=== PATIENT | male | born 1990 | race Caucasian/White ===

== ENCOUNTER 2017-03-07 14:33 | Emergency (ER) | payer MEDICAID ==
[~2017-03-07] VITALS: Ht 180.3 cm; Wt 81.6 kg
== END 2017-03-07 17:54 | disposition home or self-care (01) ==
LOC: ED 14:33 → EDSEX 14:35 → ED 17:54
DX: T63.441A Toxic effect of venom of bees, accidental (unintentional), initial encounter (principal); F17.200 Nicotine dependence, unspecified, uncomplicated; Z88.0 Allergy status to penicillin; Z88.1 Allergy status to other antibiotic agents; Z91.030 Bee allergy status; Y92.9 Unspecified place or not applicable